=== PATIENT | female | born 1970 | race Caucasian/White ===

== ENCOUNTER 2020-01-10 10:56 | Outpatient (CLI) | payer SELFPAY ==
[2020-01-12 09:36] LABS: COVID-19 RT-PCR Result Not Detected (NotDetected)
== END 2020-01-10 11:16 ==
PROVIDERS: PCP Nurse Practitioner Family; Visit Provider Nurse Practitioner Family
DX: Z11.59 Encounter for screening for other viral diseases (principal)
CPT/HCPCS: U0003

== ENCOUNTER 2020-07-31 10:37 | Outpatient (CLI) | payer BC, SELFPAY ==
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
== END 2020-07-31 10:57 ==
PROVIDERS: PCP Nurse Practitioner Family; Referring Provider Nurse Practitioner Family; Visit Provider Physician Assistant
DX: M19.072 Primary osteoarthritis, left ankle and foot (principal); M25.572 Pain in left ankle and joints of left foot
CPT/HCPCS: 73610

== ENCOUNTER 2020-11-03 16:55 | Outpatient (REF) | payer SELFPAY ==
[2020-11-06 16:24] LABS: COVID-19 RT-PCR UVMMC Result Negative (Negative)
== END 2020-11-03 16:56 | disposition home or self-care (01) ==
LOC: NCHCN 16:55
PROVIDERS: PCP Nurse Practitioner Family; Visit Provider Family Medicine
DX: R09.89 Other specified symptoms and signs involving the circulatory and respiratory systems (principal); Z20.822 Contact with and (suspected) exposure to COVID-19
CPT/HCPCS: U0003

== ENCOUNTER 2021-03-30 12:28 | Outpatient (REF) | payer BC, SELFPAY ==
[2021-03-30 20:54] LABS: HCT 39.7 % (36.0-46.0); HGB 13.2 g/dL (11.2-15.7); MCH 30.5 pg (27.0-33.0); MCHC 33.2 % (32.0-36.0); MCV 91.7 fL (80-95); MPV 12.3 fL (8.0-11.0); Platelet Count 224 10^3/uL (130-400); RBC 4.33 10^6/uL (3.93-5.22); RDW 12.8 % (11.7-14.6); RDW-SD 43.1 fL; WBC 6.17 10^3/uL (4.4-10.8)
[2021-03-30 21:04] LABS: ESR 6 mm/hr (0-20)
[2021-03-30 21:38] LABS: ALT 23 U/L (14-59); AST 21 U/L (15-37); Albumin 4.2 g/dL (3.4-5.0); Alkaline Phosphatase 80 U/L (46-116); Anion Gap 9.2 mmol/L (3-11); BUN 13 mg/dL (7-18); Bilirubin, Total 0.5 mg/dL (0.2-1.0); CO2 27.8 mmol/L (21.0-32.0); CREATININE 0.7 mg/dL (0.55-1.02); Calcium 9.1 mg/dL (8.5-10.1); Chloride 106 mmol/L (98-107); Glucose 76 mg/dL (74-106); Sodium 143 mmol/L (136-145); Total Protein 7.1 g/dL (6.4-8.2); Vitamin B12 287 pg/mL (193-986)
[2021-03-30 21:52] LABS: C-Reactive Protein 0.08 mg/dL (0.0-0.3); Uric Acid 3.6 mg/dL (2.6-6.0)
[2021-04-03 16:58] LABS: Rheumatoid Factor <8.6 IU/mL (<12.0)
[2021-04-04 10:35] LABS: Lyme Ab w Rflx to Lyme Confirm Negative (Negative)
[2021-04-04 12:21] LABS: ANA Interpretation Negative (Negative)
[2021-04-04 22:56] LABS: Anaplasma phagocytophilum Negative (Negative); B. miyamotoi PCR Negative (Negative); Babesia divergens/MO-1 Negative (Negative); Babesia duncani Negative (Negative); Babesia microti Negative (Negative); Ehrlichia chaffeensis Negative (Negative); Ehrlichia ewingii/canis Negative (Negative); Ehrlichia muris eauclairensis Negative (Negative)
== END 2021-03-30 12:29 | disposition home or self-care (01) ==
LOC: NCHCN 12:28
PROVIDERS: Family Medicine; PCP Nurse Practitioner Family; Visit Provider Nurse Practitioner Family
DX: R20.2 Paresthesia of skin (principal); M25.50 Pain in unspecified joint
CPT/HCPCS: 80053; 85027; 85652; 87798; 82607; 84443; 84550; 86038; 86140; 86431; 86618

== ENCOUNTER 2023-01-05 15:43 | Emergency (ER) | payer OTHER, SELFPAY ==
[2023-01-05] VITALS (34 sets, daily range): BP systolic 108–143; BP diastolic 69–92; PULSE 62–88; RESP 10–22; O2SAT 98
--- NOTE | 2023-01-05 15:45 | RT.EKG_ITS ---
APPROVED REPORT Exam: Resting ECG Reason for Exam: chest pain Patient Location: E HR:73 bpm ECG Measurements Heart Rate 73 AXIS DE 127 P 45 QRSd 83 QRS 42 QT 384 T 19 QTc 417 Conclusion Sinus rhythm...normal P axis, V-rate 60- 99 Atrial premature complex...SV complex w/ short R-R interval subtle st dep I, v5,v6
--- NOTE | 2023-01-05 16:00 | DI.RAD_ITS ---
Exam(s) XR PORTABLE CHEST AP EXAM: XR PORTABLE CHEST AP CLINICAL HISTORY: chest pain TECHNIQUE: 2D digital imaging was performed of the chest. One image was obtained. An AP view was ob tained. COMPARISON: No exams were available for comparison FINDINGS: MEDIASTINUM: Normal. HEART: Normal. PULMONARY VASCULATURE: Normal. LUNGS: Clear. PLEURAL SPACE: No pleural effusion or pneumothorax. BONE:Within normal limits for the patient's age. OTHER FINDINGS:Normal. IMPRESSION: No acute pulmonary findings. DATA REPOSITORY: RADIATION DOSE DELIVERED:
[2023-01-05 16:04] LABS: Abs Immature Grans 0.02 10^3/uL (0.0-0.06); Absolute Basophil Count 0.07 10^3/uL (0.0-0.2); Absolute Eosinophil Count 0.66 10^3/uL (0.0-0.7); Absolute Lymphocyte Count 2.54 10^3/uL (1.2-3.4); Absolute Monocyte Count 0.39 10^3/uL (0.1-0.8); Absolute Neutrophil Count 3.97 10^3/uL (1.2-6.7); Basophils % 0.9; Eosinophils % 8.6; HCT 39.4 % (36.0-46.0); Immature Grans % 0.3; Lymphocytes % 33.2; MCH 29.5 pg (27.0-33.0); MCV 90 fL (80-95); MPV 11.2 fL (8.0-11.0); Monocytes % 5.1; Neutrophils % 51.9; Platelet Count 194 10^3/uL (130-400); RDW 12.5 % (11.7-14.6); RDW-SD 41.2 fL; WBC 7.65 10^3/uL (4.4-10.8)
--- NOTE | 2023-01-05 16:10 | ED.GENADUL_ITS ---
Discharge Plan Disposition Patient Disposition: Home Condition: Stable Discharge Details Clinical Impression: Chest pain Primary Care Provider: Merlyn Abarca ED Provider: Luis Antonio Mckeon Home Meds and New Rx's Prescriptions: New aspirin 325 mg tablet 325 mg PO DAILY Qty: 30 0RF Discharge Instructions Instructions: Chest Pain (ED) Additional Instructions: Please take aspirin 325 mg tablet daily. Please follow-up with your primary care physician for outpatient stress test this week. Please return to the emergency department immediately for any worsening or new concerning symptoms. Referrals: Merlyn Abarca [Primary Care Provider] - Medical Decision Making 1615 --52-year-old female with a family history of coronary artery disease, here with chest discomfort that started 2 days ago and has persisted. Patient currently has a mild heaviness in her chest. She has had intermittent waves of pressure with radiation to her left arm today. She has had associated nausea and diaphoresis. Patient is saturating well and in no respiratory distress. Hemodynamically stable. Concern for ACS. EKG was reviewed and interpreted by me: ? subtle ST depression V5 and V6, no STEMI, no old for comparison. Low HEART score. Plan to check troponin and trend. -- Chest x-ray was interpreted by radiology: No evidence for acute abnormality in the chest. Heart and mediastinum noted to be unremarkable. 2030 --delta troponin reviewed and negative. D-dimer negative. Patient reassessed and remained stable. Repeat EKG was reviewed and interpreted by me: No concerning changes. Plan for discharge with outpatient follow-up. Patient will need outpatient stress test. Disposition decision was made weighing the risks and benefits of hospitalization versus outpatient treatment, the risk for further decompensation, and the patient's wishes. The patient was stable and requested discharge. Prior to discharge, my usual and customary return precautions were reviewed with the patient - this included follow-up instructions and reason to return to the emergency department if condition worsens, does not improve as expected, or other new concerns arise. Lab Data Lab results reviewed: Yes I reviewed the patient's lab results. Labs: Laboratory Tests Range/Units 01/05/23 01/05/23 01/05/23 15:45 15:45 15:45 WBC (4.4-10.8) 10^3/uL 7.65 RBC (3.93-5.22) 10^6/uL 4.40 Hgb (11.2-15.7) g/dL 13.0 Hct (36.0-46.0) % 39.4 MCV (80-95) fL 90 MCH (27.0-33.0) pg 29.5 MCHC (32.0-36.0) % 33.0 RDW (11.7-14.6) % 12.5 Plt Count (130-400) 10^3/uL 194 MPV (8.0-11.0) fL 11.2 H Immature Gran % 0.3 Neutrophils % 51.9 Lymphocytes % 33.2 Monocytes % 5.1 Eosinophils % 8.6 Basophils % 0.9 Nucleated RBC % (0.0-0.3) % 0.0 Absolute Neutrophils (1.2-6.7) 10^3/uL 3.97 Absolute Lymphocytes (1.2-3.4) 10^3/uL 2.54 Absolute Monocytes (0.1-0.8) 10^3/uL 0.39 Absolute Eosinophils (0.0-0.7) 10^3/uL 0.66 Absolute Basophils (0.0-0.2) 10^3/uL 0.07 APTT (21.5-31.9) sec 24.3 D-Dimer (<500) ng/mlFEU Sodium (136-145) mmol/L 141 Potassium (3.5-5.1) mmol/L 3.7 Chloride (98-107) mmol/L 105 Carbon Dioxide (21.0-32.0) mmol/L 28.0 Anion Gap (3-11) mmol/L 8.0 BUN (7-18) mg/dL 11 Creatinine (0.55-1.02) mg/dL 0.7 Est GFR (CKD-EPI 2020) (mL/min/1.73m2) 104.00 Glucose (74-106) mg/dL 156 H Calcium (8.5-10.1) mg/dL 9.3 Magnesium (1.8-2.4) mg/dL 2.0 Total Bilirubin (0.2-1.0) mg/dL 0.3 AST (15-37) U/L 19 ALT (14-59) U/L 20 Alkaline Phosphatase (46-116) U/L 95 Troponin I (<or=60) ng/L < 50 Total Protein (6.4-8.2) g/dL 7.2 Albumin (3.4-5.0) g/dL 4.0 Range/Units 01/05/23 01/05/23 01/05/23 15:45 15:45 19:40 WBC (4.4-10.8) 10^3/uL RBC (3.93-5.22) 10^6/uL Hgb (11.2-15.7) g/dL Hct (36.0-46.0) % MCV (80-95) fL MCH (27.0-33.0) pg MCHC (32.0-36.0) % RDW (11.7-14.6) % Plt Count (130-400) 10^3/uL MPV (8.0-11.0) fL Immature Gran % Neutrophils % Lymphocytes % Monocytes % Eosinophils % Basophils % Nucleated RBC % (0.0-0.3) % Absolute Neutrophils (1.2-6.7) 10^3/uL Absolute Lymphocytes (1.2-3.4) 10^3/uL Absolute Monocytes (0.1-0.8) 10^3/uL Absolute Eosinophils (0.0-0.7) 10^3/uL Absolute Basophils (0.0-0.2) 10^3/uL APTT (21.5-31.9) sec D-Dimer (<500) ng/mlFEU 367 Sodium (136-145) mmol/L Potassium (3.5-5.1) mmol/L Chloride (98-107) mmol/L Carbon Dioxide (21.0-32.0) mmol/L Anion Gap (3-11) mmol/L BUN (7-18) mg/dL Creatinine (0.55-1.02) mg/dL Est GFR (CKD-EPI 2020) (mL/min/1.73m2) Glucose (74-106) mg/dL Calcium (8.5-10.1) mg/dL Magnesium (1.8-2.4) mg/dL Total Bilirubin (0.2-1.0) mg/dL AST (15-37) U/L ALT (14-59) U/L Alkaline Phosphatase (46-116) U/L Troponin I (<or=60) ng/L Cancelled < 50 Total Protein (6.4-8.2) g/dL Albumin (3.4-5.0) g/dL HPI General Mode of arrival: ambulatory . Date/Time Provider Initiated Documentation: 01/05/23 15:57 . Limitations to Documentation: no limitations . Information obtained by: patient . HPI Narrative: 52-year-old female presents with chief complaint of chest discomfort. Patient notes discomfort started on Friday and has persisted. She notes intermittent waves of pressure that last 20 to 60 minutes. She had associated nausea and diaphoresis. Patient notes she felt better yesterday and then symptoms seem to return and worsen last night. Again she was better this morning and then symptoms returned this afternoon with radiation to left arm and abdomen today. Patient notes current mild heaviness with no modifiers. No associated shortness of breath. No associated leg swelling or calf pain. Related Data Home Medications Medication Instructions Recorded Confirmed aspirin 325 mg tablet 325 mg PO DAILY #30 tabs 01/05/23 Previous Rx's Medication Instructions Recorded aspirin 325 mg tablet 325 mg PO DAILY #30 tabs 01/05/23 Allergies Allergy/AdvReac Type Severity Reaction Status Date / Time Sulfa (Sulfonamide Allergy rash Verified 01/05/23 15:55 Antibiotics) General Stated Complaint: Chest Pain DONNA: 3 Review of Systems All systems reviewed & are unremarkable except as noted in HPI and below Constitutional Constitutional: Denies fever(s) Cardiovascular Cardiovascular: Reports as per HPI and Reports chest pain PFSH All Active Problems (Updated 01/05/23 @ 20:29 by Luis Antonio Mckeon MD) Chest pain (Acute) 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) Left Achilles tendinitis (Acute) Social History Smoking/Tobacco Use Status: Never Smoking risk assessment performed?: Yes Alcohol Intake: current Alcohol Intake frequency: holidays/special occasions only Drug use: Never Substance use type: does not use Do you feel safe at home: Yes Do you feel safe in your relationship?: Yes Exam Const General: cooperative and no acute distress HENMT Mouth: moist mucous membranes Eyes Conjunctivae: normal conjunctivae Sclera: normal sclerae Neck Neck: trachea midline and supple Resp Auscultation: clear to auscultation bilaterally, no rales, no rhonchi and no wheezes Cardio Rate: regular rate and not tachycardic Rhythm: regular rhythm Heart Sounds: murmur (subtle 1/6) systolic GI Palpation: soft, not firm, no guarding, no masses, not rigid and nontender Skin General skin exam: no rashes or lesions noted Neuro General: patient alert, patient awake, patient oriented x3 and tone normal Extrem General: no calf tenderness and no edema Psych Appearance: grossly normal Mental Status: mental status grossly normal Speech and Movement: speech and movement normal Course Vital Signs Vital signs: Vital Signs Pulse 81 01/05/23 15:48 Respiratory Rate 20 01/05/23 15:48 Blood Pressure 143/76 H 01/05/23 15:48 Pulse Oximetry 98 01/05/23 15:48 Temperature Source Tympanic 01/05/23 15:48 Pulse 81 01/05/23 15:48 Respiratory Rate 20 01/05/23 15:48 Respiratory Effort Normal 01/05/23 15:51 Blood Pressure 143/76 H 01/05/23 15:48 Blood Pressure Position Sitting 01/05/23 15:48 Pulse Oximetry 98 01/05/23 15:48 Oxygen Delivery Method Room Air 01/05/23 15:48 Oxygen Flow Rate 0 01/05/23 15:48 Lab/Test Results Lab/Test Results: Laboratory Tests Range/Units 01/05/23 15:45 WBC (4.4-10.8) 10^3/uL 7.65 RBC (3.93-5.22) 10^6/uL 4.40 Hgb (11.2-15.7) g/dL 13.0 Hct (36.0-46.0) % 39.4 MCV (80-95) fL 90 MCH (27.0-33.0) pg 29.5 MCHC (32.0-36.0) % 33.0 RDW (11.7-14.6) % 12.5 Plt Count (130-400) 10^3/uL 194 MPV (8.0-11.0) fL 11.2 H Immature Gran % 0.3 Neutrophils % 51.9 Lymphocytes % 33.2 Monocytes % 5.1 Eosinophils % 8.6 Basophils % 0.9 Nucleated RBC % (0.0-0.3) % 0.0 Absolute Neutrophils (1.2-6.7) 10^3/uL 3.97 Absolute Lymphocytes (1.2-3.4) 10^3/uL 2.54 Absolute Monocytes (0.1-0.8) 10^3/uL 0.39 Absolute Eosinophils (0.0-0.7) 10^3/uL 0.66 Absolute Basophils (0.0-0.2) 10^3/uL 0.07
[2023-01-05 16:16] LABS: PTT Activated 24.3 sec (21.5-31.9)
[2023-01-05 16:21] LABS: ALT 20 U/L (14-59); AST 19 U/L (15-37); Alkaline Phosphatase 95 U/L (46-116); BUN 11 mg/dL (7-18); Bilirubin, Total 0.3 mg/dL (0.2-1.0); CREATININE 0.7 mg/dL (0.55-1.02); Calcium 9.3 mg/dL (8.5-10.1); Chloride 105 mmol/L (98-107); Glucose 156 mg/dL (74-106); Potassium 3.7 mmol/L (3.5-5.1); Sodium 141 mmol/L (136-145); Total Protein 7.2 g/dL (6.4-8.2); Troponin I < 50 ng/L (<or=60)
--- NOTE | 2023-01-05 16:26 | DI.VRAD_ITS ---
PROCEDURE INFORMATION: Exam: XR Chest Exam date and time: 01/05/2023 3:53 PM Age: 52 years old Clinical indication: Other: Not specified; Patient HX: Chest pain TECHNIQUE: Imaging protocol: Radiologic exam of the chest. Views: 1 view. Other technique: Portable exam. COMPARISON: No relevant prior studies available. FINDINGS: Lungs: Unremarkable. No consolidation. Pleural spaces: Unremarkable. No pleural effusion. No pneumothorax. Heart/Mediastinum: Unremarkable. No cardiomegaly. Bones/joints: Unremarkable. IMPRESSION: No evidence for acute abnormality in the chest. Dictated and Authenticated by: Maritza Montero MD. Ordering:MK Salmon MD
[2023-01-05 17:06] LABS: D-Dimer 367 ng/mlFEU (<500)
[2023-01-05 20:05] LABS: Troponin I < 50 ng/L (<or=60)
--- NOTE | 2023-01-05 20:30 | RT.EKG_ITS ---
APPROVED REPORT Exam: Resting ECG Reason for Exam: chest pain Patient Location: E HR:68 bpm ECG Measurements Heart Rate 68 AXIS MD 120 P 33 QRSd 85 QRS 62 QT 418 T 48 QTc 446 Conclusion Sinus rhythm...normal P axis, V-rate 60- 99
--- NOTE | 2023-01-05 21:09 | NUR.NOTE ---
Requisition faxed to [facility] for Regular Exercise Treadmill Test, instruction sheet given to patient, advised someone from [facility] testing would call her with date and time of test.Nursing Note:
--- NOTE | 2023-01-05 22:30 | NUR.NOTE ---
Referral faxed to pcp, Merlyn Abarca at [facility] to f/u in a couple of days for chest pain.Nursing Note:
== END 2023-01-05 20:58 | disposition home or self-care (01) ==
PROVIDERS: Emergency Provider Student in an Organized Health Care Education/Training Program; PCP Nurse Practitioner Family
DX: R07.89 Other chest pain (principal)
CPT/HCPCS: 80053; 93005; 99283; 71045; 83735; 84484; 85025; 85379; 85730; 93010; 99285

== ENCOUNTER 2024-12-27 13:10 | Outpatient (REF) | payer OTHER, SELFPAY | END 2024-12-27 13:11 | disposition home or self-care (01) | LOC: LBN 13:10 | PROVIDERS: PCP Nurse Practitioner Family; Visit Provider Physician Assistant Medical | DX: R19.5 Other fecal abnormalities (principal) | CPT/HCPCS: 87177 ==